=== PATIENT | female | born 1960 | race Caucasian/White ===

== ENCOUNTER 2019-09-29 21:12 | Emergency (ER) | payer OTHER ==
[~2019-09-29] VITALS: Ht 157.5 cm; Wt 51.7 kg
[2019-09-29] MEDS ORDERED: RAYOS2 MG (21:48)
[2019-09-29] MEDS ORDERED: MIRALAX17 GM (21:49)
[2019-09-29] MEDS ORDERED: XELJANZ5 MG (21:49)
[2019-09-29] MEDS ORDERED: DOXYCYCLINE HY100 MG (21:50)
[2019-09-29] MEDS ORDERED: MANNXTRA300 GM (21:50)
== END 2019-09-29 22:31 | disposition home or self-care (01) ==
LOC: ER 21:12
DX: R21 Rash and other nonspecific skin eruption (principal)

== ENCOUNTER 2019-11-23 19:24 | Emergency (ER) | payer OTHER ==
[~2019-11-23] VITALS: Ht 157.5 cm; Wt 51.3 kg
[~2019-11-23 19:24] MED LIST: DOXYCYCLINE HY100 MG; MANNXTRA300 GM; MIRALAX17 GM; RAYOS2 MG; XELJANZ5 MG
[2019-11-23] MEDS ORDERED: MEDROLPACK PO (20:47)
== END 2019-11-23 21:08 | disposition home or self-care (01) ==
LOC: ER 19:24
DX: T78.49XA Other allergy, initial encounter (principal); R21 Rash and other nonspecific skin eruption

== ENCOUNTER 2020-05-30 16:28 | Emergency (ER) | payer OTHER ==
[~2020-05-30] VITALS: Ht 157.5 cm; Wt 49.9 kg
[~2020-05-30 16:28] MED LIST changes: +MEDROLPACK PO
[2020-05-30] MEDS ORDERED: MEDROLPACK PO (16:57)
== END 2020-05-30 18:52 | disposition home or self-care (01) ==
LOC: ER 16:28
DX: R21 Rash and other nonspecific skin eruption (principal); T78.49XA Other allergy, initial encounter

== ENCOUNTER → 2020-06-09 | Emergency (ER) | payer OTHER ==
[~2020-06-09] VITALS: Ht 154.9 cm; Wt 49.9 kg
== END | disposition left against medical advice (07) ==
LOC: ER 13:45
DX: Z53.21 Procedure and treatment not carried out due to patient leaving prior to being seen by health care provider (principal)

== ENCOUNTER → 2021-08-24 | Emergency (ER) | payer OTHER ==
[~2021-08-24] VITALS: Ht 160 cm; Wt 77.1 kg
[~2021-08-24] MED LIST changes: +CALTRATE 600+D1 EAC1; +ZYRTEC10 M3
== END | disposition home or self-care (01) ==
LOC: ER 19:17
DX: S01.81XA Laceration without foreign body of other part of head, initial encounter (principal); W10.8XXA Fall (on) (from) other stairs and steps, initial encounter; Y93.01 Activity, walking, marching and hiking; Y92.018 Other place in single-family (private) house as the place of occurrence of the external cause; Y99.8 Other external cause status; S06.0X0A Concussion without loss of consciousness, initial encounter

== ENCOUNTER 2021-08-31 10:27 | Emergency (ER) | payer OTHER ==
[~2021-08-31] VITALS: Ht 162.6 cm; Wt 59.0 kg
== END 2021-08-31 13:02 | disposition home or self-care (01) ==
LOC: ER 10:27
DX: Z48.02 Encounter for removal of sutures (principal)

== ENCOUNTER 2021-10-28 14:08 | Emergency (ER) | payer OTHER ==
[~2021-10-28] VITALS: Ht 157.5 cm; Wt 47.2 kg
[2021-10-28] MEDS ORDERED: MIRALAX17 GM (15:19)
== END 2021-10-28 20:04 | disposition home or self-care (01) ==
LOC: ER 14:08
DX: R22.0 Localized swelling, mass and lump, head (principal)

== ENCOUNTER 2022-01-30 09:29 | Emergency (ER) | payer OTHER ==
[~2022-01-30] VITALS: Ht 154.9 cm; Wt 48.1 kg
== END 2022-01-30 12:15 | disposition home or self-care (01) ==
LOC: ER 09:29
DX: R42 Dizziness and giddiness (principal); Z88.2 Allergy status to sulfonamides; Z88.8 Allergy status to other drugs, medicaments and biological substances

== ENCOUNTER 2022-06-13 11:51 | Emergency (ER) | payer OTHER ==
[~2022-06-13] VITALS: Ht 165.1 cm; Wt 54.4 kg
== END 2022-06-13 17:32 | disposition home or self-care (01) ==
LOC: ER 11:51
DX: R51.9 Headache, unspecified (principal); E03.9 Hypothyroidism, unspecified; Z88.2 Allergy status to sulfonamides; Z88.8 Allergy status to other drugs, medicaments and biological substances

== ENCOUNTER 2022-10-17 14:51 | Emergency (ER) | payer OTHER ==
[~2022-10-17] VITALS: Ht 167.6 cm; Wt 65.8 kg
[2022-10-17] MEDS ORDERED: RAYOS2 MG PO (15:25)
[2022-10-17] MEDS ORDERED: LEVOTHYROXINE25 MCG PO (15:27)
== END 2022-10-17 20:16 | disposition home or self-care (01) ==
LOC: ER 14:51
DX: G93.31 Postviral fatigue syndrome (principal); Z88.2 Allergy status to sulfonamides

== ENCOUNTER 2022-11-05 16:28 | Emergency (ER) | payer OTHER ==
[~2022-11-05] VITALS: Ht 157.5 cm; Wt 56.7 kg
[~2022-11-05 16:28] MED LIST changes: +LEVOTHYROXINE25 MCG PO; +RAYOS2 MG PO
== END 2022-11-05 20:29 | disposition home or self-care (01) ==
LOC: ER 16:28
DX: R05.9 Cough, unspecified (principal); Z88.2 Allergy status to sulfonamides; Z88.8 Allergy status to other drugs, medicaments and biological substances